=== PATIENT | female | born 1975 | race Caucasian/White ===

== ENCOUNTER 2020-01-18 21:11 | Emergency (ER) | payer MEDICAID, OTHER ==
[~2020-01-18] VITALS: Ht 154.9 cm; Wt 49.9 kg
[2020-01-18 22:01] VITALS: BP 140/92
== END 2020-01-19 02:06 | disposition home or self-care (01) ==
LOC: ER 21:12
DX: S01.111A Laceration without foreign body of right eyelid and periocular area, initial encounter (principal); M62.838 Other muscle spasm; M54.2 Cervicalgia; Y04.2XXA Assault by strike against or bumped into by another person, initial encounter; Y93.89 Activity, other specified; Y92.89 Other specified places as the place of occurrence of the external cause; Y99.8 Other external cause status
CPT/HCPCS: 12011; 70450; 71250; 72125; 74176

== ENCOUNTER 2020-07-02 17:49 | Emergency (ER) | payer MEDICAID, OTHER ==
[~2020-07-02] VITALS: Ht 157.5 cm; Wt 52.2 kg
[2020-07-02 22:09] LABS: Urine Bacteria FEW /hpf (None Seen); Urine Blood 1+ /uL (Negative); Urine Mucus FEW (None Seen); Urine Specific Gravity 1.016 (1.001-1.035); Urine WBC 456 /hpf (0 - 5); Urine WBC Clumps PRESENT /hpf (None Seen)
[2020-07-02 22:46] LABS: Basophils # (auto) 0 10 ^3/uL (0-0.2); Basophils % (auto) 0.2 % (0.0-2.0); Eosinophils # (auto) 0 10 ^3/uL (0-0.8); Hematocrit 37.4 % (36.0-46.0); Hemoglobin 12.5 g/dL (12.2-16.2); Lymphocytes # (auto) 0.4 10 ^3/uL (0.4-5.4); Lymphocytes % (auto) 4.4 % (10.0-50.0); Mean Corpuscular Hemoglobin 29.6 pg (28.0-32.0); Mean Corpuscular Hgb Conc. 33.5 g/dL (32.0-36.0); Mean Corpuscular Volume 88.2 fL (80.0-100.0); Neutrophils % (auto) 84.4 % (37.0-80.0); Platelet Count (auto) 130 10^3/uL (140-450); Red Blood Cells 4.24 10^6/uL (4.0-5.20); Red Cell Distribution Width 12.2 % (11.8-14.3); White Blood Cell 9.5 10^3/uL (4.4-10.8)
[2020-07-02] MEDS ORDERED: SODIUM CHLORIDE 0.9% 1,000 ML IV ONE (23:00)
[2020-07-02 23:01] LABS: Potassium 3.7 mmol/L (3.5-5.1)
[2020-07-02 23:07] LABS: Albumin 3.2 g/dL (3.4-5.0); Bilirubin, Total 0.9 mg/dL (0.2-1.0); Calcium 8.5 mg/dL (8.5-10.1); Total Protein 6.7 g/dL (6.4-8.2)
[2020-07-02] MEDS ORDERED: ACETAMINOPHEN 325 MG TAB PO ONE (23:30)
[2020-07-03] VITALS: BP 113/65
[2020-07-03 00:40] LABS: Amphetamine Screen, Urine POSITIVE (NEGATIVE); Barbiturate Scree,Urine NEGATIVE (NEGATIVE); Benzodiazephine Screen, Urine NEGATIVE (NEGATIVE); Cannabinoid Screen, Urine POSITIVE (NEGATIVE); Cocaine Screen, Urine NEGATIVE (NEGATIVE); Opiate Scree,Urine NEGATIVE (NEGATIVE); Phencyclidine Screen, Urine NEGATIVE (NEGATIVE)
[2020-07-03] MEDS ORDERED: PHENAZOPYRIDINE HCL 100 MG TAB PO ONE (00:45)
[2020-07-03] MEDS ORDERED: CIPROFLOXACIN HCL 500 MG TAB PO ONE (00:45)
== END 2020-07-03 01:16 | disposition home or self-care (01) ==
LOC: ER 17:49
DX: R30.0 Dysuria (principal); R10.9 Unspecified abdominal pain; Z32.02 Encounter for pregnancy test, result negative
CPT/HCPCS: 36415; 80053; 80307; 81001; 81025; 85025; 96360; 99284; J7030

== ENCOUNTER 2022-11-05 07:36 | Inpatient (IN) | payer OTHER ==
[~2022-11-05] VITALS: Ht 157.5 cm; Wt 58.0 kg
[2022-11-05] MEDS ORDERED: ASPirin 81 mg TAB PO ONE (07:45)
[2022-11-05 08:27] LABS: Albumin 3.5 g/dL (3.4-5.0); Calcium 8.9 mg/dL (8.5-10.1); Magnesium 1.6 mg/dL (1.6-2.6); Potassium 4.1 mmol/L (3.5-5.1)
[2022-11-05 08:30] LABS: BUN/Creatinine Ratio 15.2; Bilirubin, Total 2.1 mg/dL (0.2-1.0); Total Protein 6.3 g/dL (6.4-8.2)
[2022-11-05 08:48] LABS: Red Blood Cells 4.79 10^6/uL (4.0-5.20)
[2022-11-05 08:50] LABS: Hematocrit 41.3 % (36.0-46.0); Hemoglobin 13.7 g/dL (12.2-16.2); Mean Corpuscular Hemoglobin 28.7 pg (28.0-32.0); Mean Corpuscular Hgb Conc. 33.3 g/dL (32.0-36.0); Mean Corpuscular Volume 86.2 fL (80.0-100.0); Red Cell Distribution Width 12.6 % (11.8-14.3)
[2022-11-05 09:13] LABS: Basophils % (manual) 0 (0.0-2.0); Blast Cells 0; Eosinophils % (manual) 0 (0-7); Metamyelocytes % 0; Myelocytes % 0; Promyelocytes % 0; Reactive Lymphocytes 0; White Blood Cell 31.8 10^3/uL (4.4-10.8)
[2022-11-05 09:50] LABS: Band Neutrophils % (manual) 34; Lymphocytes % (manual) 3 (10.0-50.0); Monocytes % (manual) 7 (0-12)
[2022-11-05 10:31] LABS: Lactic Acid w/Reflex 2.4 mmol/L (0.4-2.0)
[2022-11-05] MEDS ORDERED: AZITHROMYCIN 500MG/ 250ML 250 ML IV ONE (10:45)
[2022-11-05] MEDS ORDERED: levoFLOXacin 500MG 100 ML IV ONE (10:45)
[2022-11-05] MEDS ORDERED: SODIUM CHLORIDE 0.9% 1,000 ML IV ONE ×3 (10:45→13:15)
[2022-11-05] MEDS ORDERED: MORPHINE SULFATE INJ 2 MG/ml SYRG IV PRN ×2 (13:15)
[2022-11-05] MEDS ORDERED: VANCOMYCIN PER PHARMACY 0 MG IV SCH (13:15)
[2022-11-05] MEDS ORDERED: PANTOPRAZOLE 40 MG/10 ML VIAL INJ IV ONE (13:15)
[2022-11-05] MEDS ORDERED: NITROGLYCERIN 0.4 MG SL TAB SL PRN (13:15)
[2022-11-05] MEDS ORDERED: NICOTINE 7MG/24HR TOPICAL PATCH TD ONE (13:15)
[2022-11-05] MEDS ORDERED: ONDANSETRON HCL 4 MG/2 ML VIAL IV PRN (13:15)
[2022-11-05] MEDS ORDERED: VANCOMYCIN 1GM/250ML 250 ML IV ONE (13:30)
[2022-11-05 13:41] LABS: Cholesterol 155 mg/dL (< 200); HDL Cholesterol 92 mg/dL (40-59); LDL Cholesterol 63 mg/dL (< 100); Triglycerides 54 mg/dL (< 150)
[2022-11-05] MEDS ORDERED: ALBUTEROL SULF 2.5 MG/0.5ML(0.5%) NEB SOLN NEB PRN (13:45)
[2022-11-05] MEDS: NOREPINEPHRINE 8 MG/250ML KIT 250 ML IV SCH ×2 (13:45→22:20)
[2022-11-05] MEDS ORDERED: IPRATROPIUM BROM 0.5 MG/2.5ML INH SOL NEB PRN (13:45)
[2022-11-05] MEDS: AZTREONAM 1GM INJ 1 GM in D5W 5% 50 ML IV SCH ×2 (14:21→22:26)
[2022-11-05 15:04] LABS: INR 1.28 (0.9-1.15); Partial Thromboplastin Time 29.9 sec (24.6-33.4)
[2022-11-05] MEDS ORDERED: IOHEXOL 350 MG/ML 100ML IJ ONE (15:06)
[2022-11-05] MEDS: IPRATROPIUM BROM 0.5 MG/2.5ML INH SOL NEB SCH (18:29)
[2022-11-05] MEDS: ALBUTEROL SULF 2.5 MG/0.5ML(0.5%) NEB SOLN NEB SCH (18:29)
[2022-11-05 19:11] LABS: Alcohol, Urine < 3.0 mg/dL (0-10); Amphetamine Screen, Urine POSITIVE (NEGATIVE); Barbiturate Scree,Urine NEGATIVE (NEGATIVE); Benzodiazephine Screen, Urine NEGATIVE (NEGATIVE); Cannabinoid Screen, Urine NEGATIVE (NEGATIVE); Cocaine Screen, Urine NEGATIVE (NEGATIVE)
[2022-11-05 19:19] LABS: Opiate Scree,Urine NEGATIVE (NEGATIVE); Phencyclidine Screen, Urine NEGATIVE (NEGATIVE)
[2022-11-05 19:36] LABS: Urine Bacteria NONE SEEN /hpf (None Seen); Urine Blood Negative /uL (Negative); Urine Mucus FEW (None Seen); Urine WBC 2 /hpf (0 - 5)
[2022-11-05 19:52] LABS: Urine Specific Gravity > 1.050 (1.001-1.035)
[2022-11-05 21:01] VITALS: BP 99/64
[2022-11-05] MEDS ORDERED: MELATONIN 5 MG TAB PO ONE (22:00)
[2022-11-05] MEDS: PANTOPRAZOLE 40 MG/10 ML VIAL INJ IV SCH (22:19)
[2022-11-05] MEDS ORDERED: AZTREONAM 1 GM INJ VIAL ONE (22:24)
[2022-11-06] MEDS: VANCOMYCIN 1GM/250ML 250 ML IV SCH ×2 (01:13→13:27)
[2022-11-06] MEDS: IPRATROPIUM BROM 0.5 MG/2.5ML INH SOL NEB SCH ×3 (06:02→19:03)
[2022-11-06] MEDS: ALBUTEROL SULF 2.5 MG/0.5ML(0.5%) NEB SOLN NEB SCH ×3 (06:02→19:03)
[2022-11-06 06:09] LABS: Hematocrit 38.4 % (36.0-46.0); Hemoglobin 12.2 g/dL (12.2-16.2); Mean Corpuscular Hemoglobin 28.2 pg (28.0-32.0); Mean Corpuscular Hgb Conc. 31.7 g/dL (32.0-36.0); Red Blood Cells 4.31 10^6/uL (4.0-5.20); Red Cell Distribution Width 12.8 % (11.8-14.3); White Blood Cell 27.4 10^3/uL (4.4-10.8)
[2022-11-06 06:13] LABS: Basophils % (manual) 0 (0.0-2.0); Blast Cells 0; Eosinophils % (manual) 0 (0-7); Metamyelocytes % 0; Myelocytes % 0; Promyelocytes % 0; Reactive Lymphocytes 0
[2022-11-06 06:21] LABS: Albumin 2.2 g/dL (3.4-5.0); Calcium 8.2 mg/dL (8.5-10.1); Potassium 3.7 mmol/L (3.5-5.1)
[2022-11-06 06:26] LABS: BUN/Creatinine Ratio 19.7; Bilirubin, Total 1.1 mg/dL (0.2-1.0); Total Protein 5.5 g/dL (6.4-8.2)
[2022-11-06] MEDS: AZTREONAM 1GM INJ 1 GM in D5W 5% 50 ML IV SCH ×3 (07:54→22:00)
[2022-11-06 10:29] LABS: Band Neutrophils % (manual) 37; Lymphocytes % (manual) 9 (10.0-50.0); Monocytes % (manual) 8 (0-12)
[2022-11-06] MEDS: PANTOPRAZOLE 40 MG/10 ML VIAL INJ IV SCH (10:38)
[2022-11-06] MEDS: NICOTINE 7MG/24HR TOPICAL PATCH TD SCH (10:42)
[2022-11-07] VITALS (7 sets, daily range): BP systolic 81–110; BP diastolic 50–63
[2022-11-07] MEDS ORDERED: AZTREONAM 1 GM INJ VIAL ONE (00:56)
[2022-11-07] MEDS: PANTOPRAZOLE 40 MG/10 ML VIAL INJ IV SCH ×3 (01:02→21:34)
[2022-11-07] MEDS: VANCOMYCIN 1GM/250ML 250 ML IV SCH ×3 (01:30→21:34)
[2022-11-07] MEDS: TEMAZEPAM 15 MG CAP PO PRN ×2 (03:21→21:59)
[2022-11-07] MEDS: AZTREONAM 1GM INJ 1 GM in D5W 5% 50 ML IV SCH (05:20)
[2022-11-07] MEDS: ALBUTEROL SULF 2.5 MG/0.5ML(0.5%) NEB SOLN NEB SCH ×3 (06:00→18:39)
[2022-11-07] MEDS: IPRATROPIUM BROM 0.5 MG/2.5ML INH SOL NEB SCH ×3 (06:00→18:38)
[2022-11-07 06:45] LABS: Basophils # (auto) 0 10 ^3/uL (0-0.2); Basophils % (auto) 0.1 % (0.0-2.0); Eosinophils # (auto) 0.1 10 ^3/uL (0-0.8); Eosinophils % (auto) 0.3 % (0.0-7.0); Hematocrit 36.2 % (36.0-46.0); Lymphocytes # (auto) 1.3 10 ^3/uL (0.4-5.4); Lymphocytes % (auto) 7.4 % (10.0-50.0); Mean Corpuscular Hemoglobin 28.1 pg (28.0-32.0); Mean Corpuscular Hgb Conc. 33.1 g/dL (32.0-36.0); Monocytes # (auto) 1.2 10 ^3/uL (0-1.3); Monocytes % (auto) 7.1 % (0.0-12.0); Neutrophils # (auto) 14.8 10 ^3/uL (1.6-8.6); Neutrophils % (auto) 85.1 % (37.0-80.0); Nucleated Red Blood Cells % 0.1 %; Red Blood Cells 4.25 10^6/uL (4.0-5.20); Red Cell Distribution Width 12.5 % (11.8-14.3); White Blood Cell 17.4 10^3/uL (4.4-10.8)
[2022-11-07 06:48] LABS: BUN/Creatinine Ratio 31.1 (10.0-20.0); Potassium 3.4 mmol/L (3.5-5.1)
[2022-11-07] MEDS: NICOTINE 7MG/24HR TOPICAL PATCH TD SCH (09:07)
[2022-11-07] MEDS ORDERED: SODIUM CHLORIDE 0.9% 500 ML IV ONE (12:45)
[2022-11-07] MEDS ORDERED: cefTRIAXone 1GM/50ML D5W 50 ML IV ONE (14:00)
[2022-11-08] MEDS: ALBUTEROL SULF 2.5 MG/0.5ML(0.5%) NEB SOLN NEB SCH ×2 (06:14→12:33)
[2022-11-08] MEDS: IPRATROPIUM BROM 0.5 MG/2.5ML INH SOL NEB SCH ×2 (06:14→12:33)
[2022-11-08] MEDS: VANCOMYCIN 1GM/250ML 250 ML IV SCH (06:19)
[2022-11-08 06:43] LABS: Basophils # (auto) 0.1 10 ^3/uL (0-0.2); Basophils % (auto) 0.5 % (0.0-2.0); Eosinophils # (auto) 0.2 10 ^3/uL (0-0.8); Eosinophils % (auto) 1.4 % (0.0-7.0); Hemoglobin 11.5 g/dL (12.2-16.2); Lymphocytes % (auto) 17.9 % (10.0-50.0); Mean Corpuscular Volume 84.7 fL (80.0-100.0); Monocytes # (auto) 1.2 10 ^3/uL (0-1.3); Monocytes % (auto) 10.8 % (0.0-12.0); Neutrophils # (auto) 7.7 10 ^3/uL (1.6-8.6); Neutrophils % (auto) 69.4 % (37.0-80.0); Red Blood Cells 4.13 10^6/uL (4.0-5.20); Red Cell Distribution Width 12.7 % (11.8-14.3); White Blood Cell 11.1 10^3/uL (4.4-10.8)
[2022-11-08 06:55] LABS: BUN/Creatinine Ratio 15.1 (10.0-20.0); Calcium 7.9 mg/dL (8.5-10.1); Potassium 3.4 mmol/L (3.5-5.1)
[2022-11-08] MEDS: NICOTINE 7MG/24HR TOPICAL PATCH TD SCH (08:58)
[2022-11-08] MEDS: PANTOPRAZOLE 40 MG/10 ML VIAL INJ IV SCH (08:59)
[2022-11-08 09:00] VITALS: BP 93/56
[2022-11-08] MEDS ORDERED: cefTRIAXone 1GM/50ML D5W 50 ML IV SCH (09:00)
[2022-11-08] MEDS ORDERED: AZITHROMYCIN 500MG/ 250ML 250 ML IV SCH (10:00)
[2022-11-08] MEDS ORDERED: PRED20TA2 PO ×2 (12:17)
[2022-11-08] MEDS ORDERED: ALBU0.084 NEB (12:17)
[2022-11-08] MEDS ORDERED: AMOX500T86 PO (12:21)
[2022-11-08 13:00] VITALS: BP 95/69
[2022-11-08 13:27] VITALS: BP 93/56
== END 2022-11-08 16:30 | disposition home or self-care (01) | DRG 720 ==
LOC: ER 07:36 → EDBD 07:36 → TELE 13:14 → TELE-WESTW 11-06 22:22
PROVIDERS: ADMIT Registered Nurse; ATTEND Internal Medicine Pulmonary Disease
DX: A41.9 Sepsis, unspecified organism (principal); J96.01 Acute respiratory failure with hypoxia; F15.10 Other stimulant abuse, uncomplicated; J18.9 Pneumonia, unspecified organism; K92.0 Hematemesis; E78.5 Hyperlipidemia, unspecified; E03.9 Hypothyroidism, unspecified; F17.210 Nicotine dependence, cigarettes, uncomplicated; I10 Essential (primary) hypertension; I25.10 Atherosclerotic heart disease of native coronary artery without angina pectoris; Z20.822 Contact with and (suspected) exposure to COVID-19; Z79.82 Long term (current) use of aspirin; Z88.0 Allergy status to penicillin; I25.2 Old myocardial infarction; Z98.51 Tubal ligation status
CPT/HCPCS: 36415; 71045; 74177; 80048; 80053; 80061; 80202; 80307; 81001; 83036; 83605; 83735; 84443; 84484; 85007; 85025; 85027; 85379; 85610; 85730; 87040; 87070; 87077; 87186; 87205; 87426; 93005; 93306; 94640; 96365; 96366; 96368; C9113; G0378; J0696; J1956; J2405; J7060